=== PATIENT | male | born 1985 | race Caucasian/White ===

== ENCOUNTER 2020-09-14 14:39 | Inpatient (IN) | payer OTHER, SELFPAY ==
[~2020-09-14] VITALS: Ht 175.3 cm; Wt 92.5 kg
[2020-09-14 14:45] VITALS: Ht 175.3 cm; Wt 92.5 kg
[2020-09-14 16:11] LABS: BASOPHIL % 0.6 % (0.2-1.5); PLATELET COUNT 301 x10^3mcL (152-348); RED CELL DISTRIBUTION WIDTH 14.1 % (12.1-16.2)
[2020-09-14 17:20] LABS: ALBUMIN 3.4 g/dL (3.4-5.0); ALKALINE PHOSPHATASE 107 U/L (46-116); ALT/SGPT 31 U/L (16-63); AST/SGOT 10 U/L (15-37); BILIRUBIN TOTAL 0.47 mg/dL (0.20-1.00); CALCIUM 9.4 mg/dL (8.5-10.1); CARBON DIOXIDE 11.3 mmol/L (21-32); CHLORIDE SERUM 87 mmol/L (98-107); CREATININE SERUM 1.3 mg/dL (0.7-1.3); GFR1 > 60 mL/min; GLUCOSE SERUM 384 mg/dL (74-106); POTASSIUM SERUM 4.8 mmol/L (3.5-5.1); TOTAL PROTEIN, SERUM 7.8 g/dL (6.4-8.2)
[2020-09-14 17:26] LABS: SODIUM SERUM 121 mmol/L (136-145)
[2020-09-14 18:49] LABS: UA SPECIFIC GRAVITY >=1.030 (1.005-1.035); microscopic required? YES; urine erythrocyte NEGATIVE (NEGATIVE)
[2020-09-14] MEDS ORDERED: ATORVASTATIN CA20 M1 PO (18:53)
[2020-09-14] MEDS ORDERED: AMLODIPINE BESY10 M2 PO (18:53)
[2020-09-14] MEDS ORDERED: BENAZEPRIL HYDR40 M1 PO (18:54)
[2020-09-14 18:59] LABS: CALCIUM 9.8 mg/dL (8.5-10.1); CARBON DIOXIDE 10.5 mmol/L (21-32); CHLORIDE SERUM 90 mmol/L (98-107); CREATININE SERUM 1.3 mg/dL (0.7-1.3); GFR1 > 60 mL/min; GLUCOSE SERUM 393 mg/dL (74-106); MAGNESIUM 2.6 mg/dL (1.8-2.4); POTASSIUM SERUM 4.8 mmol/L (3.5-5.1)
[2020-09-14 20:23] LABS: SODIUM SERUM 124 mmol/L (136-145)
[2020-09-14 20:24] LABS: MAGNESIUM 2.6 mg/dL (1.8-2.4)
[2020-09-15 03:00] LABS: CALCIUM 8.2 mg/dL (8.5-10.1); CARBON DIOXIDE 15.3 mmol/L (21-32); CHLORIDE SERUM 104 mmol/L (98-107); GFR1 > 60 mL/min; GLUCOSE SERUM 148 mg/dL (74-106); PHOSPHOROUS 1.6 mg/dL (2.5-4.9); POTASSIUM SERUM 3.5 mmol/L (3.5-5.1); SODIUM SERUM 135 mmol/L (136-145)
[2020-09-15 05:00] LABS: CALCIUM 8.5 mg/dL (8.5-10.1); CARBON DIOXIDE 17.5 mmol/L (21-32); CHLORIDE SERUM 102 mmol/L (98-107); CREATININE SERUM 1.1 mg/dL (0.7-1.3); GFR1 > 60 mL/min; GLUCOSE SERUM 127 mg/dL (74-106); MAGNESIUM 2.1 mg/dL (1.8-2.4); PHOSPHOROUS 1.8 mg/dL (2.5-4.9); POTASSIUM SERUM 3.9 mmol/L (3.5-5.1); SODIUM SERUM 133 mmol/L (136-145)
[2020-09-15 09:49] LABS: BASOPHIL % 1.6 % (0.2-1.5); PLATELET COUNT 265 x10^3mcL (152-348); RED CELL DISTRIBUTION WIDTH 13.7 % (12.1-16.2)
[2020-09-15 09:52] LABS: CALCIUM 8.1 mg/dL (8.5-10.1); CARBON DIOXIDE 17.7 mmol/L (21-32); CHLORIDE SERUM 105 mmol/L (98-107); CREATININE SERUM 0.9 mg/dL (0.7-1.3); GFR1 > 60 mL/min; GLUCOSE SERUM 159 mg/dL (74-106); PHOSPHOROUS 1.4 mg/dL (2.5-4.9); POTASSIUM SERUM 3.2 mmol/L (3.5-5.1); SODIUM SERUM 136 mmol/L (136-145)
[2020-09-15 13:06] LABS: CALCIUM 8.2 mg/dL (8.5-10.1); CHLORIDE SERUM 99 mmol/L (98-107); GFR1 > 60 mL/min; GLUCOSE SERUM 144 mg/dL (74-106); MAGNESIUM 2.1 mg/dL (1.8-2.4); PHOSPHOROUS 1.3 mg/dL (2.5-4.9); SODIUM SERUM 127 mmol/L (136-145)
[2020-09-15 13:11] LABS: CARBON DIOXIDE 17.6 mmol/L (21-32)
[2020-09-15 13:23] LABS: POTASSIUM SERUM 2.8 mmol/L (3.5-5.1)
[2020-09-15 16:29] LABS: CALCIUM 8.5 mg/dL (8.5-10.1); CARBON DIOXIDE 17.7 mmol/L (21-32); CHLORIDE SERUM 105 mmol/L (98-107); CREATININE SERUM 0.8 mg/dL (0.7-1.3); GFR1 > 60 mL/min; GLUCOSE SERUM 118 mg/dL (74-106); MAGNESIUM 2.1 mg/dL (1.8-2.4); POTASSIUM SERUM 3.1 mmol/L (3.5-5.1); SODIUM SERUM 136 mmol/L (136-145)
[2020-09-15 16:32] LABS: PHOSPHOROUS 0.7 mg/dL (2.5-4.9)
[2020-09-15 21:09] LABS: CALCIUM 8.2 mg/dL (8.5-10.1); CARBON DIOXIDE 17.1 mmol/L (21-32); CHLORIDE SERUM 110 mmol/L (98-107); CREATININE SERUM 0.7 mg/dL (0.7-1.3); GFR1 > 60 mL/min; GLUCOSE SERUM 130 mg/dL (74-106); MAGNESIUM 2.1 mg/dL (1.8-2.4); POTASSIUM SERUM 3.1 mmol/L (3.5-5.1); SODIUM SERUM 140 mmol/L (136-145)
[2020-09-15 21:24] LABS: PHOSPHOROUS 0.9 mg/dL (2.5-4.9)
[2020-09-16 00:40] LABS: CALCIUM 7.8 mg/dL (8.5-10.1); CARBON DIOXIDE 18.7 mmol/L (21-32); CHLORIDE SERUM 110 mmol/L (98-107); CREATININE SERUM 0.7 mg/dL (0.7-1.3); GFR1 > 60 mL/min; GLUCOSE SERUM 109 mg/dL (74-106); MAGNESIUM 1.8 mg/dL (1.8-2.4); POTASSIUM SERUM 3.1 mmol/L (3.5-5.1); SODIUM SERUM 142 mmol/L (136-145)
[2020-09-16 00:52] LABS: PHOSPHOROUS 0.9 mg/dL (2.5-4.9)
[2020-09-16 05:39] LABS: CALCIUM 7.6 mg/dL (8.5-10.1); CARBON DIOXIDE 20.5 mmol/L (21-32); CHLORIDE SERUM 110 mmol/L (98-107); CREATININE SERUM 0.7 mg/dL (0.7-1.3); GFR1 > 60 mL/min; GLUCOSE SERUM 137 mg/dL (74-106); MAGNESIUM 1.9 mg/dL (1.8-2.4); PHOSPHOROUS 2.3 mg/dL (2.5-4.9); SODIUM SERUM 140 mmol/L (136-145)
[2020-09-16 09:24] LABS: CALCIUM 7.6 mg/dL (8.5-10.1); CARBON DIOXIDE 18.3 mmol/L (21-32); CHLORIDE SERUM 109 mmol/L (98-107); CREATININE SERUM 0.6 mg/dL (0.7-1.3); GFR1 > 60 mL/min; GLUCOSE SERUM 118 mg/dL (74-106); MAGNESIUM 1.7 mg/dL (1.8-2.4); PHOSPHOROUS 1.7 mg/dL (2.5-4.9); SODIUM SERUM 140 mmol/L (136-145)
[2020-09-16 09:26] LABS: POTASSIUM SERUM 2.8 mmol/L (3.5-5.1)
[2020-09-16 12:41] LABS: CALCIUM 7.7 mg/dL (8.5-10.1); CHLORIDE SERUM 108 mmol/L (98-107); CREATININE SERUM 0.6 mg/dL (0.7-1.3); GFR1 > 60 mL/min; GLUCOSE SERUM 211 mg/dL (74-106); MAGNESIUM 1.7 mg/dL (1.8-2.4); PHOSPHOROUS 2.4 mg/dL (2.5-4.9); SODIUM SERUM 140 mmol/L (136-145)
[2020-09-16 12:45] LABS: POTASSIUM SERUM 2.9 mmol/L (3.5-5.1)
[2020-09-16 16:57] LABS: CALCIUM 9.8 mg/dL (8.5-10.1); CARBON DIOXIDE 27.4 mmol/L (21-32); CHLORIDE SERUM 95 mmol/L (98-107); CREATININE SERUM 1.3 mg/dL (0.7-1.3); GFR1 > 60 mL/min; GLUCOSE SERUM 139 mg/dL (74-106); MAGNESIUM 1.4 mg/dL (1.8-2.4); PHOSPHOROUS 2.2 mg/dL (2.5-4.9); POTASSIUM SERUM 4.9 mmol/L (3.5-5.1); SODIUM SERUM 127 mmol/L (136-145)
[2020-09-16 18:29] VITALS: BP 145/88
[2020-09-16 20:01] LABS: CALCIUM 8.5 mg/dL (8.5-10.1); CARBON DIOXIDE 22.8 mmol/L (21-32); CHLORIDE SERUM 104 mmol/L (98-107); CREATININE SERUM 0.6 mg/dL (0.7-1.3); GFR1 > 60 mL/min; GLUCOSE SERUM 212 mg/dL (74-106); MAGNESIUM 1.7 mg/dL (1.8-2.4); PHOSPHOROUS 2.5 mg/dL (2.5-4.9); SODIUM SERUM 138 mmol/L (136-145)
[2020-09-16 20:06] LABS: POTASSIUM SERUM 2.9 mmol/L (3.5-5.1)
[2020-09-17 05:24] VITALS: BP 163/115
[2020-09-17 07:57] LABS: BASOPHIL % 0.6 % (0.2-1.5); PLATELET COUNT 305 x10^3mcL (152-348); RED CELL DISTRIBUTION WIDTH 13.7 % (12.1-16.2)
[2020-09-17 08:13] LABS: CALCIUM 8.2 mg/dL (8.5-10.1); CARBON DIOXIDE 24.6 mmol/L (21-32); CHLORIDE SERUM 106 mmol/L (98-107); CREATININE SERUM 0.6 mg/dL (0.7-1.3); GFR1 > 60 mL/min; GLUCOSE SERUM 150 mg/dL (74-106); MAGNESIUM 1.8 mg/dL (1.8-2.4); POTASSIUM SERUM 3.1 mmol/L (3.5-5.1); SODIUM SERUM 141 mmol/L (136-145)
[2020-09-17] MEDS ORDERED: PEP20 PO (09:51)
[2020-09-17] MEDS ORDERED: VITC PO (09:51)
[2020-09-17] MEDS ORDERED: MUCINEX600 MG PO (09:51)
[2020-09-17] MEDS ORDERED: D-10001 TAB PO (09:51)
[2020-09-17] MEDS ORDERED: ZINC SULFATE220 MG PO (09:52)
[2020-09-17] MEDS ORDERED: KPHOS PO (09:52)
[2020-09-17] MEDS ORDERED: GLIPIZIDE10 M2 PO (09:54)
[2020-09-17] MEDS ORDERED: METFORMIN HYDR500 M1 PO (09:55)
[2020-09-17] MEDS ORDERED: LIPI20 PO (09:56)
[2020-09-17] MEDS ORDERED: NOR10 PO (09:56)
[2020-09-17 09:57] VITALS: BP 143/97
[2020-09-17] MEDS ORDERED: ZES20 PO (10:10)
[2020-09-17 12:36] VITALS: BP 139/91
[2020-09-17 13:19] VITALS: BP 141/91
== END 2020-09-17 15:28 | disposition home or self-care (01) | DRG 177 ==
LOC: ED 14:39 → IC 17:50 → DU 17:50
PROVIDERS: Student in an Organized Health Care Education/Training Program; ADMIT Internal Medicine; ATTEND Internal Medicine
DX: U07.1 COVID-19 (principal); E11.10 Type 2 diabetes mellitus with ketoacidosis without coma; J12.82 Pneumonia due to coronavirus disease 2019; E87.1 Hypo-osmolality and hyponatremia; I10 Essential (primary) hypertension; E11.9 Type 2 diabetes mellitus without complications; E78.5 Hyperlipidemia, unspecified; Z91.19 Patient's noncompliance with other medical treatment and regimen
CPT/HCPCS: 82962; 85378; G0378; J1644; J1815; J2405; J3480; J3490; J3535; J7030